=== PATIENT | female | born 1960 | race Caucasian/White ===

== ENCOUNTER 2018-08-06 01:42 | Emergency (ER) | payer OTHER ==
[~2018-08-06] VITALS: Ht 162.6 cm; Wt 66.0 kg
[~2018-08-06 01:42] MED LIST: CVS OMEPRAZOLE20 MG PO; DICLOFENAC SODI75 MG PO; LYRICA50 MG PO; SYNTHROID100 MCG PO; TIZANIDINE4 MG PO; VICOPROFEN PR
[2018-08-06 02:28] LABS: IMMATURE GRANULOCYTES 0.9 % (0.0-5.0); MEAN CORPUSCULAR HGB 34.8 pG CALC (26.0-32.0); MEAN CORPUSCULAR HGB CONC 33.1 g/L CALC (32.0-36.0); NEUT# 4.19 thou/uL (2.00-7.15); RED BLOOD COUNT 2.3 mill/uL (4.20-5.60); RED CELL DISTRI WIDTH 17.7 % (11.5-15.5)
[2018-08-06 02:30] LABS: HEMATOCRIT 24.2 % (37.0-47.0); MEAN CELL VOLUME 105.2 fL CALC (80.0-100.0)
[2018-08-06 02:40] LABS: BILIRUBIN, TOTAL 5.3 mg/dL (0.0-1.4); BUN 20 mg/dL (7-17); BUN/CREATININE RATIO 25 (12-20 (CALC)); CARBON DIOXIDE 19 mmol/l (22-30); CHLORIDE 106 mmol/l (95-108); CREATININE 0.8 mg/dL (0.5-1.0); GFR > 60 ML/MIN (>=60 (CALC)); GFR FOR AFR.AMER. > 60 ML/MIN (>=60 (CALC)); SGOT/AST 126 u/l (14-36); SODIUM 133 mmol/l (137-146); TOTAL PROTEIN 7.2 g/dL (6.3-8.2)
[2018-08-06 02:53] LABS: ALBUMIN 2.4 g/dL (3.2-5.0); ALKALINE PHOSPHATASE 161 u/l (38-126); ANION GAP 11 (6-22 (CALC)); MYOGLOBIN 54 ng/mL (0 - 62); POTASSIUM 3.4 mmol/l (3.5-5.1)
[2018-08-06] MEDS ORDERED: SPIRONOLACT50 M1 PO (04:45)
[2018-08-06] MEDS ORDERED: LASIX20 MG PO (04:45)
[2018-08-06 06:51] VITALS: BP 110/59
== END 2018-08-06 08:20 | disposition home or self-care (01) ==
LOC: ED 01:42 → ED-I 02:35 → ED 08:20
PROVIDERS: Emergency Medicine
DX: K74.60 Unspecified cirrhosis of liver (principal); B19.20 Unspecified viral hepatitis C without hepatic coma; R60.9 Edema, unspecified; M06.9 Rheumatoid arthritis, unspecified; F43.10 Post-traumatic stress disorder, unspecified; F31.9 Bipolar disorder, unspecified; F17.210 Nicotine dependence, cigarettes, uncomplicated; Z59.0 Homelessness; M79.89 Other specified soft tissue disorders; M79.604 Pain in right leg; M79.605 Pain in left leg

== ENCOUNTER 2019-07-16 | Emergency (ER) | payer SELFPAY ==
[~2019-07-16] MED LIST changes: +LASIX20 MG PO; +SPIRONOLACT50 M1 PO
[2019-07-16] MEDS ORDERED: NAPROXEN DR500 MG PO (21:43)
== END 2019-07-16 21:49 | disposition home or self-care (01) | DRG 552 ==
DX: S33.5XXA Sprain of ligaments of lumbar spine, initial encounter (principal); S63.501A Unspecified sprain of right wrist, initial encounter; S43.401A Unspecified sprain of right shoulder joint, initial encounter; F17.210 Nicotine dependence, cigarettes, uncomplicated; V18.0XXA Pedal cycle driver injured in noncollision transport accident in nontraffic accident, initial encounter; Y93.55 Activity, bike riding